=== PATIENT | male | born 1985 | race Caucasian/White ===

== ENCOUNTER 2017-02-08 07:01 | Emergency (ER) | payer MEDICAID ==
[~2017-02-08] VITALS: Wt 78.0 kg
[~2017-02-08 07:01] MED LIST: IBUP800T25 PO; MUSCLE RELAX
[2017-02-08] MEDS ORDERED: NAPR-260 PO (08:12)
[2017-02-08] MEDS ORDERED: CYCL-319 PO (08:12)
--- NOTE | 2017-02-08 08:45 | ERD ---
ER Documentation Chief Complaint Date/Time DATE: 02/08/17 TIME: 08:39 Chief Complaint CHRONIC BACK ARGUELLES HPI Patient is a 31-year-old male with history of sciatica who presents with sudden onset, moderate, constant, progressive left lower back pain, with mild radiation to the buttock. Symptoms started yesterday. Patient denies fall or acute injury, but pain started while he was playing with children. Patient denies incontinence, fever, leg weakness or numbness. Patient was diagnosed 2 years ago with sciatica but symptoms resolved with naproxen. ROS All systems reviewed and are negative except as per history of present illness. Medications Home Meds Active Scripts Cyclobenzaprine Hcl* (Cyclobenzaprine Hcl*) 10 Mg Tablet, 10 MG PO TID Y for PAIN, #21 TAB Prov:REIC GAN 02/08/17 Naproxen* (Naprosyn*) 500 Mg Tablet, 500 MG PO BID Y for PAIN AND/OR INFLAMMATION, #30 TAB Prov:ERIC GAN 02/08/17 Reported Medications Ibuprofen* (Motrin*) 800 Mg Tab, 800 MG PO Q8 PRN 10/10/11 [Muscle Relax] No Conflict Check 10/10/11 Allergies Allergies: Coded Allergies: No Known Allergies (Verified Allergy, Mild, 02/08/17) PMhx/Soc Past medical history: Sciatica Past surgical history: Denies Social history: Denies tobacco, alcohol or illicit drug History of Surgery: No Anesthesia Reaction: No Hx Neurological Disorder: No Hx Respiratory Disorders: No Hx Cardiac Disorders: No Hx Psychiatric Problems: No Hx Miscellaneous Medical Probl: Yes (sciatica ) Hx Alcohol Use: Yes Hx Substance Use: No Hx Tobacco Use: No Smoking Status: Never smoker FmHx Family History: No coronary disease, No diabetes Physical Exam Vitals Vital Signs Date Time Temp Pulse Resp B/P Pulse Ox O2 Delivery O2 Flow Rate FiO2 02/08/17 07:03 98.0 76 18 128/77 99 Physical Exam Const: Alert, oriented, appears mildly in pain Head: Atraumatic Eyes: Normal Conjunctiva ENT: Normal External Ears, Nose and Mouth. Neck: Full range of motion. No meningismus. Resp: Clear to auscultation bilaterally Cardio: Regular rate and rhythm, no murmurs Abd: Soft, non tender, non distended. No CVA tenderness Skin: No petechiae or rashes Back: No midline or flank tenderness, right mid lumbar paraspinal muscular tenderness. Ext: No cyanosis, or edema Neur: Awake and alert, strength and sensation intact throughout bilateral lower extremities, slightly antalgic gait with cane Psych: Normal Mood and Affect Procedures/MDM MDM: Patient with acute, nontraumatic lumbar pain. Has relatively benign exam. No neurologic deficits. Patient reports having the same pain approximately 2 years ago, at which time he was diagnosed with sciatica. Symptoms at that time responded to naproxen. We will give prescription for naproxen and Flexeril, and advised patient on return precautions for any neurological or urinary symptoms, or worsening pain. Departure Diagnosis: Primary Impression: Lumbosacral strain Encounter type: initial encounter Qualified Code: S39.012A - Lumbosacral strain, initial encounter Condition: Fair Patient Instructions: Back Pain (Acute Or Chronic) Additional Instructions: Return to ER for leg weakness or numbness, incontinence, fever, or other concerns. ERIC GAN Feb 08, 2017 08:44
== END 2017-02-08 08:44 | disposition home or self-care (01) ==
LOC: FTE 07:01
DX: S39.012A Strain of muscle, fascia and tendon of lower back, initial encounter (principal); X58.XXXA Exposure to other specified factors, initial encounter; Y92.9 Unspecified place or not applicable
CPT/HCPCS: 99283

== ENCOUNTER 2017-07-17 08:09 | Emergency (ER) | payer MEDICAID ==
[~2017-07-17] VITALS: Ht 170.2 cm; Wt 74.0 kg
[~2017-07-17 08:09] MED LIST changes: +CYCL-319 PO; +NAPR-260 PO
[2017-07-17 08:11] VITALS: Ht 170.2 cm; Wt 74.0 kg
[2017-07-17] MEDS ORDERED: traMADol 50 MG TAB PO ONE (08:30)
--- NOTE | 2017-07-17 08:31 | ERD ---
ER Documentation Chief Complaint Date/Time DATE: 07/17/17 TIME: 08:29 Chief Complaint pt bib family with c/o continued headache for over 1 month HPI 32-year-old male otherwise healthy presents for ongoing headache for 1 month now. He describes it to be moderate to severe, almost daily headaches that are frontal and sharp and go to the occipital region as well. He has been seen by his primary care doctor about 2 weeks ago where lab work was done and everything was reported to be normal. He did not also saw an eyeglass cutter, and they were told that his examination was normal. He was told to try Tylenol and ibuprofen which she has and nothing has improved. 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 He reports lightheadedness with this. He denies any trauma, visual changes, nausea, vomiting. He denies constitutional symptoms. ROS All systems reviewed and are negative except as per history of present illness. Medications Home Meds Active Scripts Tramadol HCl (Tramadol HCl) 50 Mg Tablet, 50 MG PO Q4 Y for PAIN, #20 TAB Prov:JOLANTA XIE PA-C 07/17/17 Cyclobenzaprine Hcl* (Cyclobenzaprine Hcl*) 10 Mg Tablet, 10 MG PO TID Y for PAIN, #21 TAB Prov:ERIC GAN 02/08/17 Naproxen* (Naprosyn*) 500 Mg Tablet, 500 MG PO BID Y for PAIN AND/OR INFLAMMATION, #30 TAB Prov:ERIC GAN 02/08/17 Reported Medications Ibuprofen* (Motrin*) 800 Mg Tab, 800 MG PO Q8 PRN 10/10/11 [Muscle Relax] No Conflict Check 10/10/11 Allergies Allergies: Coded Allergies: No Known Allergies (Verified Allergy, Mild, 02/08/17) PMhx/Soc History of Surgery: No Anesthesia Reaction: No Hx Neurological Disorder: No Hx Respiratory Disorders: No Hx Cardiac Disorders: No Hx Psychiatric Problems: No Hx Miscellaneous Medical Probl: Yes (sciatica ) Hx Alcohol Use: Yes Hx Substance Use: No Hx Tobacco Use: No Physical Exam Vitals Vital Signs Date Time Temp Pulse Resp B/P Pulse Ox O2 Delivery O2 Flow Rate FiO2 07/17/17 08:11 98.3 68 18 116/69 98 Physical Exam General: Well-developed, well-nourished. The patient appears in no acute distress. HEENT: Head is normocephalic, atraumatic. No scleral icterus. Pupils are equal , round, and reactive. Neck: Supple. Nontender. Lungs: Clear to auscultation. Normal air movement. Heart: Regular rate and rhythm. S1 and S2 are normal. No murmurs, gallops, or rubs. Abdomen: Soft, nontender, nondistended. Bowel sounds are normoactive. Extremities: No clubbing or cyanosis. Normal pulses. Moving extremities x 4. No weakness. Neurologic: Alert and oriented 3. No focal deficits. Speech and gait normal, finger to nose normal. Skin: Normal turgor. No rash or lesions. Results 24 hrs DIAGNOSTIC IMAGING REPORT Patient: KOLBY RUIZ : 1985 Age: 32 Sex: M MR #: [id number] DOS: 07/17/17823 Ordering MD: JOLANTA XIE PA-C Location: [facility] Room/Bed: PROCEDURE: CT brain without contrast CLINICAL INDICATION: Headache, dizziness TECHNIQUE: CT of the brain without contrast was performed on a multidetector CT scanner, with multiplanar reformats. One or more of the following dose reduction techniques were used: Automated exposure control, adjustment in mA and / or kV according to patient size, use of iterative reconstructive technique. CTDIvol = 45 mGy; DLP = 720 mGy-cm. COMPARISON: None available FINDINGS: No acute intracranial hemorrhage is identified. No extra-axial fluid collection is seen. There is no mass effect. No midline shift is identified. Ventricles and sulci are within normal limits for size and configuration. The density of the brain is within normal limits. Rinaldi-white differentiation is preserved. Osseous structures are unremarkable. Mastoid air cells and imaged paranasal sinuses grossly clear. IMPRESSION: Unremarkable noncontrast CT of the brain. RPTAT: VV .Scott Saxena MD, MD Date Time Electronically viewed and signed by .Scott Saxena MD, MD on 07/17/2017 09:24 .O/ CC: JOLANTA XIE PA-C Current Medications Medications (Trade) Dose Ordered Sig/Yobany Route PRN Reason Start Time Stop Time Status Last Admin Dose Admin Tramadol HCl (Ultram) 50 mg ONCE ONCE PO 07/17/17 08:30 07/17/17 08:31 DC 07/17/17 08:32 Procedures/MDM ER course: Patient was given tramadol for pain. MDM: 32-year-old male presents with an ongoing headache for approximately a month now, presenting with constant headache almost daily. Patient's history is not concerning for subarachnoid hemorrhage, meningitis, encephalitis. Headache was treated with tramadol he states that he is feeling better at this time. Due to the ongoing headache, advanced imaging was obtained, CT head was normal. He does have a primary care doctor and appropriate outpatient follow-up , they have been asked to get a referral to see a neurologist. Departure Diagnosis: Primary Impression: Headache Condition: Good JOLANTA XIE PA-C Jul 17, 2017 08:26
--- NOTE | 2017-07-17 09:24 | RADRPT ---
PROCEDURE: CT brain without contrast CLINICAL INDICATION: Headache, dizziness TECHNIQUE: CT of the brain without contrast was performed on a multidetector CT scanner, with multi planar reformats. One or more of the following dose reduction techniques were used: Automated expos ure control, adjustment in mA and / or kV according to patient size, use of iterative reconstructive technique. CTDIvol = 45 mGy; DLP = 720 mGy-cm. COMPARISON: None available FINDINGS: No acute intracranial hemorrhage is identified. No extra-axial fluid collection is seen. There is no mass effect. No midline shift is identified. Ventricles and sulci are within normal limits for size and configuration. The density of the brain is within normal limits. Rinaldi-white differentiation is preserved. Osseous structures are unremarkable. Mastoid air cells and imaged paranasal sinuses grossly clear. IMPRESSION: Unremarkable noncontrast CT of the brain. RPTAT: VV .Scott Saxena MD, Date Time Electronically viewed and signed by .Scott Saxena MD, on 07/17/2017 09:24 .O/
[2017-07-17] MEDS ORDERED: TRAM50TA2 PO (09:38)
== END 2017-07-17 10:23 | disposition home or self-care (01) ==
LOC: FTE 08:09
DX: R51 Headache (principal)
CPT/HCPCS: 70450; Z7502; Z7610